=== PATIENT | male | born 1980 | race Caucasian/White ===

== ENCOUNTER 2016-12-02 16:52 | Emergency (ER) | payer OTHER ==
[2016-12-02 18:57] LABS: BASOPHIL 0.1 % (0-2); EOSINOPHIL 0 % (0-5); HCT 46.4 % (42.0-52.0); HGB 15.9 g/dl (13.2-18.0); LYMPHOCYTE 1.8 % (15-48); MCH 32.3 pg (25.0-31.0); MCHC 34.3 g/dL (32.0-36.0); MCV 94.3 fL (78.0-100.0); MONOCYTE 11.2 % (0-12); MPV 10.3 fL (6.0-9.5); NEUTROPHIL 86.9 % (41-80); PLT 236 K/uL (150-400); RBC 4.92 M/uL (4.70-6.00); RDW 14.5 % (11.5-14.0)
[2016-12-02 19:09] LABS: WBC 17.8 K/uL (4.0-10.5)
[2016-12-02 19:19] LABS: ALBUMIN 4.5 g/dL (3.5-5.0); ALKALINE PHOSHATASE 835 U/L (53-128); AMYLASE 1445 U/L (28-100); BILIRUBIN - TOTAL 8.4 mg/dL (0.1-1.0); BUN 18 mg/dL (6-25); CHLORIDE 95 mmol/L (98-107); GLOBULIN (CALCULATION) 2.7 g/dL (2.2-4.2); GLUCOSE 105 mg/dL (70-105); POTASSIUM 3.2 mmol/L (3.5-5.1); TOTAL PROTEIN 7.2 g/dL (6.4-8.3)
[2016-12-02 19:30] LABS: AST 664 U/L (0-37); LIPASE >600 U/L (13-60)
[2016-12-02 19:41] LABS: ALT 1113 U/L (2-40)
[2016-12-02 20:10] LABS: LACTIC ACID 1.7 mmol/L (0.5-2.2)
[2016-12-02 20:59] LABS: INR 0.94 (0.9-1.2); PROTHROMBIN TIME 12.2 SECONDS (11.7-14.0); PTT 23.6 SECONDS (23.2-31.4)
[2016-12-02 21:32] LABS: BILIRUBIN 3+ mg/dL (NEGATIVE); BLOOD TRACE-INTACT Ery/uL (NEGATIVE); CLARITY CLEAR (CLEAR); COLOR YELLOW (YELLOW); GLUCOSE (U) TRACE mg/dL (NORMAL); KETONE (U) 2+ (MODERATE) mg/dL (NEGATIVE); LEUKOCYTES NEGATIVE Leu/uL (NEGATIVE); NITRITE NEGATIVE (NEGATIVE); PROTEIN 1+ mg/dL (NEGATIVE); UROBILINOGEN >=8.0 mg/dL (0.2-1.0); pH 5.5 (5.0-9.0)
[2016-12-02 21:37] LABS: MUCOUS TRACE
== END 2016-12-03 01:30 | disposition other institution (70) ==
LOC: FER 16:52
PROVIDERS: Nurse Practitioner; Nurse Practitioner Family
DX: K85.90 Acute pancreatitis without necrosis or infection, unspecified (principal)
CPT/HCPCS: 36415; 80053; 80074; 81001; 82150; 82550; 83605; 83690; 85025; 85610; 85730; G0480; J1170; J2405; Q9967